=== PATIENT | male | born 1945 | race Native Hawaiian/Other Pacific Islander ===

== ENCOUNTER 2018-02-19 09:46 | Emergency (ER) | payer MEDICARE, OTHER ==
[~2018-02-19] VITALS: Ht 172.7 cm; Wt 70.3 kg
[2018-02-19 09:57] VITALS: Ht 172.7 cm; Wt 70.3 kg
[2018-02-19 10:46] LABS: PLATELET COUNT 223 x10^3mcL (130-400); RED CELL DISTRIBUTION WIDTH 13.9 % (11.5-14.5)
[2018-02-19 10:53] LABS: CALCIUM 9.3 mg/dL (8.5-10.1); CHLORIDE SERUM 92 mmol/L (98-107); CREATININE SERUM 2.5 mg/dL (0.7-1.3); GLUCOSE SERUM 295 mg/dL (74-106); POTASSIUM SERUM 4.6 mmol/L (3.5-5.1); SODIUM SERUM 129 mmol/L (136-145)
[2018-02-19 10:58] LABS: ALKALINE PHOSPHATASE 84 U/L (46-116); ALT/SGPT 56 U/L (16-63); AST/SGOT 79 U/L (15-37); BILIRUBIN TOTAL 2.91 mg/dL (0.20-1.00); TOTAL PROTEIN, SERUM 7.5 g/dL (6.4-8.2)
[2018-02-19 11:07] LABS: ALBUMIN 2.1 g/dL (3.4-5.0)
[2018-02-19 13:21] LABS: BAND NEUTROPHIL 6 % (0-10); BASOPHIL 0 % (0-2); MONOCYTE 5 % (0-7); SEGMENTED NEUTROPHILS 84 % (37-75)
[2018-02-19 13:22] LABS: rbc morphology (normal/abnorm) ABNORMAL (NORMAL)
[2018-02-19 13:23] VITALS: BP 142/91
[2018-02-19 13:23] LABS: PLATELET MORPHOLOGY PLATELETS DECREASED
== END 2018-02-19 13:45 | disposition short-term general hospital (02) ==
LOC: ED 09:46
PROVIDERS: Emergency Medicine
DX: A41.9 Sepsis, unspecified organism (principal); E87.2 Acidosis; R65.20 Severe sepsis without septic shock; Z88.6 Allergy status to analgesic agent
CPT/HCPCS: 36600; 85060; J2543; J3370; J3490; J7030; J7050; Q0092